=== PATIENT | male | born 1975 | race Hispanic/Latino ===

== ENCOUNTER → 2020-12-15 | Day surgery (SDC) | payer OTHER ==
[~2020-12-15] MED LIST: FENOFIBRATE145 MG PO; VASCEPA1 GM PO; ZESTRIL10 MG PO
[2020-12-15 12:10] VITALS: BP 107/56
== END | disposition home or self-care (01) ==
LOC: OR 08:24 → EDSEX 11:00
PROVIDERS: ATTEND Internal Medicine Gastroenterology
DX: K20.90 Esophagitis, unspecified without bleeding (principal); K29.60 Other gastritis without bleeding; K29.50 Unspecified chronic gastritis without bleeding; K21.9 Gastro-esophageal reflux disease without esophagitis; K59.09 Other constipation; K76.0 Fatty (change of) liver, not elsewhere classified; R05 Cough; I10 Essential (primary) hypertension; E78.5 Hyperlipidemia, unspecified; Z01.810 Encounter for preprocedural cardiovascular examination; Z01.812 Encounter for preprocedural laboratory examination; Z20.822 Contact with and (suspected) exposure to COVID-19; Z68.35 Body mass index [BMI] 35.0-35.9, adult
CPT/HCPCS: 43239; 43450; 93005; C9113; U0002